=== PATIENT | female | born 1955 | race Caucasian/White ===

== ENCOUNTER 2021-12-13 17:55 | Emergency (ER) | payer SELFPAY ==
[~2021-12-13] VITALS: Ht 167.6 cm; Wt 76.2 kg
[2021-12-13 18:34] VITALS: BP 145/66
[2021-12-13] MEDS ORDERED: AMOXIL/CLAVULANATE 875/125 MG 1 TAB PO ONE (18:45)
[2021-12-13] MEDS ORDERED: HYDROcodone/APAP 5/325 MG 1 TAB TAB PO ONE (18:45)
[2021-12-13] MEDS ORDERED: ACET-8386 PO (19:22)
[2021-12-13] MEDS ORDERED: AMOX-1230 PO (19:22)
[2021-12-13] MEDS ORDERED: IBUP-2213 PO (19:22)
--- NOTE | 2021-12-13 19:48 | NUR ---
Patient discharged with v/s stable. Written and verbal after care instructions given and explained. Patient alert, oriented and verbalized understanding of instructions. Ambulatory with steady gait. All questions addressed prior to discharge. ID band removed. Patient advised to follow up with PMD. Rx of AUGMENTIN, MOTRIN, NORCO given. Patient educated on indication of medication including possible reaction and side effects. Opportunity to ask questions provided and answered.
== END 2021-12-13 19:48 | disposition home or self-care (01) ==
LOC: MED 17:55
DX: J34.0 Abscess, furuncle and carbuncle of nose (principal); E11.9 Type 2 diabetes mellitus without complications; Z79.899 Other long term (current) drug therapy
CPT/HCPCS: 99283